=== PATIENT | female | born 1995 | race Caucasian/White ===

== ENCOUNTER 2017-04-13 12:37 | Emergency (ER) | payer OTHER ==
--- NOTE | 2017-04-13 13:24 | XR ---
EXAMINATION TYPE: XR ankle complete RT DATE OF EXAM: 04/13/2017 COMPARISON: NONE HISTORY: Pain TECHNIQUE: Frontal, lateral and oblique images of the right ankle are obtained. COMPARISON: None. FINDINGS: There is no acute fracture/dislocation evident. The joint spaces appear within normal youssef its. The overlying soft tissue appears unremarkable. IMPRESSION: There is no acute fracture or dislocation seen.
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
[2017-04-13 13:54] VITALS: BP 120/67; PULSE 98; RESP 16; TEMP 98.7
== END 2017-04-13 13:50 | disposition home or self-care (01) ==
LOC: EC 12:37
DX: M25.571 Pain in right ankle and joints of right foot (principal); Z91.018 Allergy to other foods; Z91.040 Latex allergy status
CPT/HCPCS: 99283

== ENCOUNTER 2017-04-21 19:17 | Emergency (ER) | payer OTHER ==
[2017-04-21 19:23] VITALS: RESP 18
[2017-04-21] MEDS ORDERED: SODIUM CHLORIDE 0.9% 1,000 ML IV ONE (20:03)
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
[2017-04-21] MEDS ORDERED: DEXTROSE 5%-0.9% NACL 1,000 ML IV SCH (20:15)
[2017-04-21 20:25] LABS: Basophils % (A) 0 %; Eosinophils % (A) 0 %; HCT 39.8 % (34.0-46.0); HGB 12.9 gm/dL (11.4-16.0); Lymphocytes # (A) 0.2 k/uL (1.0-4.8); Lymphocytes % (A) 2 %; MCH 29.7 pg (25.0-35.0); MCHC 32.3 g/dL (31.0-37.0); MCV 91.8 fL (80.0-100.0); Mean Platelet Volume 7.2; Monocytes # (A) 0.2 k/uL (0-1.0); Monocytes % (A) 2 %; Neutrophils # (A) 9.1 k/uL (1.3-7.7); Neutrophils % (A) 96 %; Platelet Count 224 k/uL (150-450); RBC 4.34 m/uL (3.80-5.40); RDW 12.3 % (11.5-15.5); WBC 9.6 k/uL (4.0-11.0)
[2017-04-21 20:32] LABS: Appearance,Urine Clear (Clear); Bacteria,Urine Few /hpf; Bilirubin,Urine Negative (Negative); Blood,Urine Negative (Negative); Color,Urine Yellow; Glucose,Urine (UA) Negative (Negative); Ketones,Urine 3+ (Negative); Leukocyte Esterase,Urine Trace (Negative); Mucus,Urine Few /hpf; Nitrite,Urine Negative (Negative); Protein,Urine 1+ (Negative); RBC,Urine 2 /hpf (0-5); Specific Gravity,Urine 1.024 (1.001-1.035); Squamous Epithelial Cell,Urine 1 /hpf (0-4); Urobilinogen,Urine <2.0 mg/dL (<2.0); WBC,Urine 2 /hpf (0-5)
[2017-04-21 20:44] LABS: ALT 20 U/L (9-52); AST 17 U/L (14-36); Albumin 4.6 g/dL (3.5-5.0); Alkaline Phosphatase 66 U/L (38-126); Anion Gap 14 mmol/L; Blood Urea Nitrogen 14 mg/dL (7-17); Calcium 9.5 mg/dL (8.4-10.2); Carbon Dioxide 23 mmol/L (22-30); Chloride 105 mmol/L (98-107); Glucose 123 mg/dL (74-99); Potassium 3.8 mmol/L (3.5-5.1); Sodium 142 mmol/L (137-145); Total Protein 7.2 g/dL (6.3-8.2)
[2017-04-21 21:00] LABS: HCG,Quantitative Serum 2080.3 mIU/mL
[2017-04-21] MEDS ORDERED: ONDANSETRON 4 MG/2 ML VIAL IVP STA (21:20)
[2017-04-21 21:42] VITALS: BP 105/61; PULSE 90; TEMP 98.3
== END 2017-04-21 21:42 | disposition home or self-care (01) ==
LOC: EC 19:17
DX: O21.0 Mild hyperemesis gravidarum (principal); Z3A.01 Less than 8 weeks gestation of pregnancy; Z87.891 Personal history of nicotine dependence; Z91.018 Allergy to other foods; Z91.040 Latex allergy status
CPT/HCPCS: 36415; 80053; 85025; 81001; 84702; 99283; 96374; 96361; J2405; 87086

== ENCOUNTER 2017-10-16 22:40 | Outpatient (CLI) | payer OTHER ==
[2017-10-16 23:37] VITALS: BP 120/65; PULSE 96; RESP 16; TEMP 98.4
--- NOTE | 2017-11-12 08:22 | P.MSEPDOC ---
Presenting Problems - Arrival Data Date of Arrival on Unit: 10/16/17 Time of Arrival on Unit: 22:40 Mode of Transport: Wheelchair - Complaint OB-Reason for Admission/Chief Complaint: Pain Comment: suprapubic pain and pressure. Medical History - Information : 1 Para: 0 Term: 0 : 0 Abortions: Spontaneous or Elective: 0 Number of Living Children: 0 - Gestational Age Gestational Age by MEEK (wks/days): 31 Weeks and 0 Days Review of Systems - Review of Systems Constitutional: No problems Breast: No problems ENT: No problems Cardiovascular: No problems Respiratory: No problems Gastrointestinal: No problems Genitourinary: No problems Musculoskeletal: No problems Neurological: No problems Skin: No problems Vital Signs - Temperature Temperature: 98.4 F Temperature Source: Oral - Pulse Right Sitting Brachial Pulse Rate: 96 Pulse Assessment Method: Automatic Cuff - Respirations Respiratory Rate: 16 Oxygen Delivery Method: Room Air - Blood Pressure Right Arm Sitting Blood Pressure: 120/65 Blood Pressure Mean: 83 Blood Pressure Source: Automatic Cuff Medical Screen Scoring (Pre) - Cervical Exam Dilation: 0 cm = 0 Membranes: Intact - Uterine Contractions Frequency: N/A Duration: N/A Intensity: N/A - Maternal Vital Signs Maternal Temperature: N/A Maternal Blood Pressure: N/A - Pain Assessment Pain Location and Character: Lower, Abdomen, Pelvic Pain Scale Used: Numeric (1 - 10) Pain Intensity: 8 Pain Management Goal: 3 Pain Description: *Acute, Pressure Pain Radiation Location: n/a Pain Frequency: Frequent Pain Duration: 2 Pain Duration Units: Days Pain Behavior: Crying, Vocalization Pain Aggravating Factors: Bending, Standing, Walking - Maternal Trauma Maternal Trauma: N/A - Assessment Baseline FHR: 135 Heart Rate - NICHD Category: Category I (Normal) = 0 NST: Reactive Position: N/A Station: N/A - Total Score Total Score (Pre): 0 - Level of Risk Level of Risk: Low (0-5) Physician Notification (Pre) - Physician Notified Physician Notified Date: 10/16/17 Physician Notified Time: 23:17 Physician/Practitioner Notifed:: oscar Spoke With: oscar New Order Received: Yes - Notification Comment Comment: d/c home on pelvic rest with orders to f/u with tremp at scheduled appt on 10/27 Disposition - Disposition OB Disposition: Discharge to home Discharge Date: 10/16/17 Discharge Time: 23:30 I agree with the RN Medical Screening Exam: Yes Risk & Benefit of care provided described in d/c instruction: Yes Diagnosis: RELATED CONDITIONS, UNSPECIFIED, THIRD TRIMESTER
== END 2017-10-16 23:30 | disposition home or self-care (01) ==
LOC: FBPOP 22:40
PROVIDERS: ATTEND Obstetrics & Gynecology
DX: O26.93 Pregnancy related conditions, unspecified, third trimester (principal); Z3A.31 31 weeks gestation of pregnancy
CPT/HCPCS: 59025; G0463; 99213

== ENCOUNTER 2017-12-20 11:51 | Outpatient (CLI) | payer OTHER ==
[2017-12-20 13:09] VITALS: BP 129/80; PULSE 120; RESP 16; TEMP 98.2
--- NOTE | 2018-02-01 18:29 | P.MSEPDOC ---
Presenting Problems - Arrival Data Date of Arrival on Unit: 12/20/17 Time of Arrival on Unit: 11:50 Mode of Transport: Ambulatory - Complaint OB-Reason for Admission/Chief Complaint: Decreased Movement, Pain Comment: Pt states decreased movement since this morning and cramping pain , unsure if having contractions, scheduled for IOL tomorrow. Medical History - Information : 1 Para: 0 Term: 0 : 0 Abortions: Spontaneous or Elective: 0 Number of Living Children: 0 - Gestational Age Gestational Age by MEEK (wks/days): 40 Weeks and 2 Days Review of Systems - Review of Systems Constitutional: No problems Breast: No problems ENT: No problems Cardiovascular: No problems Respiratory: No problems Gastrointestinal: No problems Genitourinary: No problems Musculoskeletal: No problems Neurological: No problems Skin: No problems Vital Signs - Temperature Temperature: 98.2 F Temperature Source: Oral - Pulse Right Sitting Brachial Pulse Rate: 120 Pulse Assessment Method: Automatic Cuff - Respirations Respiratory Rate: 16 Oxygen Delivery Method: Room Air - Blood Pressure Right Arm Sitting Blood Pressure: 129/80 Blood Pressure Mean: 96 Blood Pressure Source: Automatic Cuff Medical Screen Scoring (Pre) - Cervical Exam Dilation: 1-3 cm = 1 Membranes: Intact - Uterine Contractions Frequency: > 5 minutes apart = 1 Duration: N/A Intensity: N/A - Maternal Vital Signs Maternal Temperature: N/A Maternal Blood Pressure: N/A Signs of Preeclampsia: N/A Maternal Respirations: N/A - Maternal Trauma Maternal Trauma: N/A - Assessment Baseline FHR: 140 Heart Rate - NICHD Category: Category I (Normal) = 0 NST: Reactive Position: N/A, Non-vertex & not laboring = 3 - Total Score Total Score (Pre): 5 - Level of Risk Level of Risk: Low (0-5) Physician Notification (Pre) - Physician Notified Physician Notified Date: 12/20/17 Physician Notified Time: 12:40 Spoke With: Isra New Order Received: Yes - Notification Comment Comment: Daniel sanchez\Dr. Dhaliwal, advsd , 40 04/14, c/o decreased movement and pain. SVE, reactive NST, scheduled for IOL tomorrow. States to watch total of 2 hrs, if reactive and no change to SVE, may be d/c, to follow up tomorrow for IOL. Medical Screen Scoring (Post) - Cervical Exam Dilation: 1-3 cm = 1 Effacement: More than 50% = 2 - Uterine Contractions Frequency: > 5 minutes apart = 1 Duration: > 40 seconds = 2 - Assessment Heart Rate: 130 Heart Rate - NICHD Category: Category I (Normal) = 0 - Total Score Total Score (Post): 6 - Post Treatment Level of Risk Post Treatment Level of Risk: Medium (6-9) Physician Notification (Post) - Notification Comment Comment: Return in the morning for IOL may come back in the night if pain/ contractions increase Disposition - Disposition OB Disposition: Discharge to home Discharge Date: 12/20/17 Discharge Time: 14:15 I agree with the RN Medical Screening Exam: Yes Risk & Benefit of care provided described in d/c instruction: Yes Diagnosis: FALSE LABOR AT OR AFTER 37 COMPLETED WEEKS OF GESTATION
== END 2017-12-20 14:15 | disposition home or self-care (01) ==
LOC: FBPOP 11:51
PROVIDERS: ATTEND Obstetrics & Gynecology Obstetrics
DX: O47.1 False labor at or after 37 completed weeks of gestation (principal); Z3A.40 40 weeks gestation of pregnancy
CPT/HCPCS: 59025; 84112; G0463; 99213

== ENCOUNTER 2017-12-21 05:50 | Inpatient (IN) | payer OTHER ==
[2017-12-21] MEDS ORDERED: TERBUTALINE 1 MG/ML VIAL SQ PRN (06:04)
[2017-12-21] MEDS ORDERED: LIDOCAINE 0.5% (PF) 5 MG/ML (50 ML SDV) SQ PRN (06:04)
[2017-12-21] MEDS ORDERED: OXYTOCIN 10 UNIT/ML 1 ML VIAL IM PRN (06:04)
[2017-12-21] MEDS ORDERED: METHYLERGONOVINE 0.2 MG/ML 1 ML AMP IM PRN (06:04)
[2017-12-21] MEDS ORDERED: CARBOPROST TROMETHAMINE 250 MCG/ML 1 ML AMP IM PRN (06:04)
[2017-12-21] MEDS: LACTATED RINGERS 1,000 ML IV SCH ×2 (06:08→10:15)
[2017-12-21] MEDS ORDERED: OXYTOCIN 20 UNITS/1000 ML NS 1,000 ML IV SCH ×2 (06:15→12:45)
[2017-12-21 06:18] VITALS: BMI 29.9
[2017-12-21 08:04] LABS: Basophils % (A) 0 %; Eosinophils # (A) 0.2 k/uL (0-0.7); Eosinophils % (A) 2 %; HCT 33.8 % (34.0-46.0); HGB 10.5 gm/dL (11.4-16.0); Hypochromasia Slight; Lymphocytes # (A) 1.9 k/uL (1.0-4.8); Lymphocytes % (A) 18 %; MCH 24.7 pg (25.0-35.0); MCV 79.6 fL (80.0-100.0); Mean Platelet Volume 7.4; Monocytes # (A) 0.6 k/uL (0-1.0); Monocytes % (A) 6 %; Neutrophils # (A) 7.5 k/uL (1.3-7.7); Neutrophils % (A) 72 %; Platelet Count 331 k/uL (150-450); Poikilocytosis Slight; RBC 4.25 m/uL (3.80-5.40); RDW 14.9 % (11.5-15.5); WBC 10.4 k/uL (3.8-10.6)
[2017-12-21] MEDS ORDERED: BUTORPHANOL 1 MG/ML 1 ML VIAL IV PRN (08:12)
[2017-12-21] MEDS ORDERED: ALBUTEROL NEBULIZED 2.5 MG/3 ML INHALATION PRN (08:13)
[2017-12-21] MEDS ORDERED: ROPIVACAINE 100 MG, fentaNYL (PF) 200 MCG in SODIUM CHLORIDE 0.9% 76 ML EPIDURAL ONE (10:15)
[2017-12-21] MEDS ORDERED: HYDROCORTISONE 2.5% RECTAL CREAM 30 GM TUBE RECTAL PRN (12:38)
[2017-12-21] MEDS ORDERED: diphenhydrAMINE 50 MG CAP PO PRN (12:38)
[2017-12-21] MEDS ORDERED: MEASLES-MUMPS-RUBELLA VACC/PF 12,500 UNIT/0.5 ML VIAL SQ ONE (12:38)
[2017-12-21] MEDS ORDERED: diphenhydrAMINE 25 MG CAP PO PRN (12:38)
[2017-12-21] MEDS ORDERED: WITCH HAZEL 1 EACH MED..PAD TOPICAL PRN (12:38)
[2017-12-21] MEDS ORDERED: SIMETHICONE 80 MG CHEWABLE PO PRN (12:38)
[2017-12-21] MEDS ORDERED: BENZOCAINE/MENTHOL SPRAY 1 GM/SPRAY AEROSOL TOPICAL PRN (12:38)
[2017-12-21] MEDS ORDERED: LANOLIN CREAM 5 GM TUBE TOPICAL PRN (12:38)
[2017-12-21] MEDS ORDERED: diphenhydrAMINE 50 MG/ML 1 ML VIAL IVP PRN ×2 (12:38)
[2017-12-21] MEDS ORDERED: ZOLPIDEM 5 MG TAB PO PRN (12:38)
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
--- NOTE | 2017-12-21 12:44 | P.PROBDLV ---
Vaginal Delivery Note - . Vaginal Delivery Note: This is a 22-year-old 1 para 0 at 40-3/7 weeks with an estimated due date of 101 that presents for induction of labor secondary to postdates. Patient was admitted to labor and delivery Pitocin induction was begun and amniotomy was performed couple hours after admission. Clear fluid was obtained. Patient progressed through labor eventually getting an epidural for pain control became complete certified pushing and had a normal spontaneous vaginal delivery of a viable female at 1213 weight of 8 lbs. 8 oz. with Apgars of 9 and 9 at one and 5 minutes respectively. The umbilical cord was then doubly clamped and cut after a 2 minute delay and the was handed off to mom. The placenta was then delivered spontaneously intact with a three- vessel cord being noted. Suction the patient's vaginal vault revealed a left labial laceration was was repaired with 4-0 chromic in the usual fashion in addition a second-degree midline vaginal laceration was noted this was repaired in usual fashion with 3-0 Rapide. Estimated blood loss approximate 400 mL. Uterus noted to be firm and below the umbilicus at this time. Bleeding was minimal. All counts are correct 2 patient and infant tolerated delivery well and are resting comfortably.
[2017-12-21] MEDS: IBUPROFEN 600 MG TAB PO PRN (15:07)
[2017-12-21] MEDS: ACETAMINOPHEN TAB 325 MG TAB PO PRN (20:35)
[2017-12-21] MEDS: SENNOSIDES-DOCUSATE SODIUM 1 EACH TAB PO SCH (20:37)
[2017-12-22] MEDS: IBUPROFEN 600 MG TAB PO PRN ×3 (00:22→15:31)
[2017-12-22] MEDS: ACETAMINOPHEN TAB 325 MG TAB PO PRN ×3 (02:07→20:53)
[2017-12-22 08:05] LABS: Basophils % (A) 0 %; Eosinophils # (A) 0.2 k/uL (0-0.7); Eosinophils % (A) 2 %; Hypochromasia Moderate; Lymphocytes # (A) 1.7 k/uL (1.0-4.8); Lymphocytes % (A) 18 %; MCH 25.8 pg (25.0-35.0); MCHC 31.7 g/dL (31.0-37.0); MCV 81.2 fL (80.0-100.0); Mean Platelet Volume 7.8; Monocytes # (A) 0.6 k/uL (0-1.0); Monocytes % (A) 7 %; Neutrophils # (A) 6.6 k/uL (1.3-7.7); Neutrophils % (A) 71 %; Platelet Count 257 k/uL (150-450); RBC 2.96 m/uL (3.80-5.40); RDW 15.2 % (11.5-15.5); WBC 9.3 k/uL (3.8-10.6)
[2017-12-22 08:08] LABS: HGB 7.6 gm/dL (11.4-16.0)
[2017-12-22] MEDS: SENNOSIDES-DOCUSATE SODIUM 1 EACH TAB PO SCH ×2 (08:09→23:37)
--- NOTE | 2017-12-22 08:28 | P.PNOBGVD ---
Subjective - Subjective Principal diagnosis: day #1, normal spontaneous vaginal delivery Interval history: This is a 22-year-old 1 para 1 that had a normal spontaneous vaginal delivery of a viable female yesterday 1016. Patient did well overnight. She is struggling with breast-feeding as her is tongue tied. She is ambulating and voiding without difficulty. Her pain is controlled with Motrin. Her lochia is moderate. She does wish to stay 1 more day Patient reports: Reports appetite normal, Reports voiding normally, Reports pain well controlled, Reports ambulating normally [place]: doing well Objective - Latest Vital Signs Latest vital signs: Vital Signs Temp Pulse Resp BP Pulse Ox 12/22/17 08:00 98.1 F 106 H 16 138/71 12/22/17 04:15 98.1 F 94 16 110/66 12/22/17 00:05 98.2 F 89 15 112/88 99 12/21/17 20:00 98.0 F 98 16 117/68 12/21/17 16:00 98.7 F 110 H 16 134/83 12/21/17 15:15 109 H 18 130/69 12/21/17 14:45 98.4 F 103 H 16 135/83 12/21/17 14:15 107 H 16 111/60 12/21/17 14:00 98.5 F 102 H 16 106/60 12/21/17 13:45 103 H 16 109/64 12/21/17 13:30 93 18 109/61 12/21/17 13:15 98.5 F 102 H 16 108/70 98 12/21/17 13:00 100 18 111/76 12/21/17 12:45 81 16 105/69 12/21/17 12:30 98.4 F 87 16 119/73 Intake and Output 12/21/17 12/22/17 12/22/17 22:59 06:59 14:59 Intake Total 3360 Output Total 300 Balance 3060 Intake: Intake, IV Titration 3000 Amount Lactated Ringers 1,000 ml 2000 @ 125 mls/hr IV .Q8H NEELIMA Rx#:[id number] Oxytocin 20 Units/1000 ml 1000 Ns 1,000 ml @ Per Protocol IV .Q0M NEELIMA Rx#: [id number] Oral 360 Output: Urine 300 Other: # Voids 1 1 - Exam Extremities: Present: normal Abdomen: Present: soft Uterus: Present: firm - Labs Labs: Abnormal Lab Results - Last 24 Hours (Table) 12/22/17 Range/Units 07:03 RBC 2.96 L (3.80-5.40) m/uL Hgb 7.6 L D (11.4-16.0) gm/dL Hct 24.0 L (34.0-46.0) % Assessment and Plan (1) Term Current Visit: Yes Status: Acute Code(s): Z34.80 - ENCOUNTER FOR SUPRVSN OF NORMAL , UNSP TRIMESTER SNOMED Code(s): 97536422 (2) Status post vaginal delivery Current Visit: Yes Status: Acute Code(s): CKB6353 - SNOMED Code(s): 727983723 Plan: We'll continue routine care and have the vendor management consultant see her today for help with breast-feeding. Anticipate discharge tomorrow 12/23.
[2017-12-22] MEDS ORDERED: FLUTICASONE 50MCG/SPRAY NASAL 16GM EA NOSTRIL PRN (08:47)
[2017-12-22] MEDS: LACTATED RINGERS 1,000 ML IV SCH ×3 (23:38→23:42)
[2017-12-23] MEDS: IBUPROFEN 600 MG TAB PO PRN ×2 (00:35→08:26)
[2017-12-23 01:12] VITALS: PULSE 76
--- NOTE | 2017-12-23 08:08 | P.DS ---
Providers Date of admission: 12/21/17 05:50 Expected date of discharge: 12/23/17 Attending physician: Mariam Dhaliwal Primary care physician: Stated None - Discharge Diagnosis(es) (1) Status post vaginal delivery Current Visit: Yes Status: Acute (2) Term Current Visit: Yes Status: Acute (3) Post-dates Current Visit: Yes Status: Acute Hospital Course: This is a 22-year-old 1 now para 1 woman who was admitted at 40-3/7 weeks gestation for postdates induction of labor. Following admission she underwent a Pitocin induction of labor with artificial rupture of membranes. She received an epidural anesthetic. She went on to have an uncomplicated delivery of a liveborn female weighing 8 lbs. 8 oz. She had a labial laceration. Please see the delivery summary for details. Her course was unremarkable. By day #1 she was ambulating and voiding without difficulty and tolerating a general diet. By post 100 a #2 she continued to do well she was complaining of some on back and perineal soreness that was managed with ice and ibuprofen. Her lochia was decreasing. On her vital signs were stable. She was therefore discharged home with routine instructions for care and follow-up. Procedures: Normal spontaneous vaginal delivery Patient Condition at Discharge: Good Plan - Discharge Summary New Discharge Prescriptions: No Action Albuterol Inhaler [Ventolin Hfa Inhaler] 2 puff PO DAILY PRN PRN Reason: Shortness Of Breath Discharge Medication List Albuterol Inhaler [Ventolin Hfa Inhaler] 2 puff PO DAILY PRN 10/16/17 [History] Follow up Appointment(s)/Referral(s): Mariam Dhaliwal DO [Doctor of Osteopathic Medicine] - 4 Weeks Activity/Diet/Wound Care/Special Instructions: Follow-up in the office in 6 weeks . Call with any concerning signs or symptoms including heavy vaginal bleeding, severe abdominal pain, fever greater than 101, swelling or redness of the lower extremities, foul vaginal discharge, or signs of depression. Nothing in the vagina for 6 weeks after delivery, specifically no intercourse. Discharge Disposition: HOME SELF-CARE
[2017-12-23] MEDS: SENNOSIDES-DOCUSATE SODIUM 1 EACH TAB PO SCH (08:14)
[2017-12-23 09:12] VITALS: BP 138/74; RESP 20; TEMP 97.4
[2017-12-23] MEDS: ACETAMINOPHEN TAB 325 MG TAB PO PRN (11:55)
[2017-12-23] MEDS ORDERED: INFLUENZA VACCINE (6 MOS+) 60 MCG/0.5 ML SYRINGE IM ONE (12:02)
--- NOTE | 2017-12-23 15:13 | US ---
EXAMINATION TYPE: US venous doppler duplex LE RT DATE OF EXAM: 12/23/2017 2:57 PM COMPARISON: NONE CLINICAL HISTORY: 22-year-old female rule out DVT. Vaginal delivery 2 days ago. Right leg edema SIDE PERFORMED: right TECHNIQUE: The lower extremity deep venous system is examined utilizing real time linear array sonog aren with graded compression, doppler sonography and color-flow sonography. FINDINGS: VESSELS IMAGED: External Iliac Vein (EIV) Common Femoral Vein Deep Femoral Vein Greater Saphenous Vein * Femoral Vein Popliteal Vein Small Saphenous Vein * Proximal Calf Veins (* superficial vessels) Right Leg: No evidence of DVT as visualized IMPRESSION: No evidence for DVT within the right lower extremity imaged from the groin to the upper calf.
== END 2017-12-23 15:30 | disposition home or self-care (01) | DRG 807 ==
LOC: 4FBP 05:50
PROVIDERS: ADMIT Obstetrics & Gynecology Obstetrics; ATTEND Obstetrics & Gynecology Obstetrics
PROC: 10E0XZZ Delivery of Products of Conception, External Approach (ICD-10-PCS; principal; 2017-12-21)
PROC: 0KQM0ZZ Repair Perineum Muscle, Open Approach (ICD-10-PCS; 2017-12-21)
PROC: 3E033VJ Introduction of Other Hormone into Peripheral Vein, Percutaneous Approach (ICD-10-PCS; 2017-12-21)
PROC: 10907ZC Drainage of Amniotic Fluid, Therapeutic from Products of Conception, Via Natural or Artificial Opening (ICD-10-PCS; 2017-12-21)
PROC: 00HU33Z Insertion of Infusion Device into Spinal Canal, Percutaneous Approach (ICD-10-PCS; 2017-12-21)
PROC: 3E0R3BZ Introduction of Anesthetic Agent into Spinal Canal, Percutaneous Approach (ICD-10-PCS; 2017-12-21)
PROC: 0HQ9XZZ Repair Perineum Skin, External Approach (ICD-10-PCS; 2017-12-21)
DX: O48.0 Post-term pregnancy (principal); Z37.0 Single live birth; O70.0 First degree perineal laceration during delivery; O70.1 Second degree perineal laceration during delivery; J45.909 Unspecified asthma, uncomplicated; O99.52 Diseases of the respiratory system complicating childbirth; K21.9 Gastro-esophageal reflux disease without esophagitis; O99.62 Diseases of the digestive system complicating childbirth; Z3A.40 40 weeks gestation of pregnancy; Z79.899 Other long term (current) drug therapy; Z91.040 Latex allergy status; Z91.018 Allergy to other foods; Z82.49 Family history of ischemic heart disease and other diseases of the circulatory system; Z83.3 Family history of diabetes mellitus
CPT/HCPCS: 85025; 86850; 86900; 86901; 90686; 90707

== ENCOUNTER → 2019-09-11 | Outpatient (CLI) | payer OTHER ==
--- NOTE | 2019-09-12 08:50 | US ---
EXAMINATION TYPE: Transabdominal DATE OF EXAM: 09/11/2019 3:59 PM COMPARISON: NONE CLINICAL HISTORY: Z36 Confirm dates. EXAM PERFORMED: Transabdominal (TA) EXAM MEASUREMENTS: GESTATIONAL AGE / DATING Physician Established: Not yet established Dates by LMP: (10 weeks/3 days) EDC: 04/05/2020 Dates by First Scan: No previous this is first scan Dates by Current Scan for: (10 weeks/3 days) EDC: 04/05/2020 MATERNAL ANATOMY Uterus: 12.1 x9.6 x 6.3cm ; retroverted Right Ovary: 3.0 x 2.6 x 1.6cm Left Ovary: 3.7 x 2.0 x 1.5cm Post CDS / Adnexa: wnl Presence of free fluid: no Presence of corpus luteal cyst: in left ovary = 1.6 x 1.4 x 1.3cm Presence of subchorionic bleed: no GESTATION / SURVEY CRL: 3.6cm (10 weeks/3 days) Yolk Sac (normal less than 6mm): not seen Heart Rate: 171 bpm Rhythm: Normal IUP: Single, live IUP Date of LMP: 06/30/2019 Beta HcG (if available): NA Single, live IUP,10 weeks/3 days, EDC: 04/05/2020; [id number]. IMPRESSION: 1. Single intrauterine gestation estimated at 10 weeks 3 days gestation based on the crown-rump lengt h. Cardiac activity measures 171 bpm.
== END | disposition home or self-care (01) ==
LOC: RADUSWWP 15:34
PROVIDERS: ATTEND Obstetrics & Gynecology
DX: Z36.9 Encounter for antenatal screening, unspecified (principal); Z3A.10 10 weeks gestation of pregnancy
CPT/HCPCS: 76801

== ENCOUNTER → 2019-09-20 | Outpatient (CLI) | payer OTHER ==
[2019-09-20 14:34] LABS: Basophils % (A) 0 %; Eosinophils # (A) 0.2 k/uL (0-0.7); Eosinophils % (A) 2 %; HCT 37.3 % (34.0-46.0); HGB 12.4 gm/dL (11.4-16.0); Lymphocytes # (A) 2.2 k/uL (1.0-4.8); Lymphocytes % (A) 24 %; MCH 29.2 pg (25.0-35.0); MCHC 33.3 g/dL (31.0-37.0); MCV 87.8 fL (80.0-100.0); Mean Platelet Volume 7.2; Monocytes # (A) 0.4 k/uL (0-1.0); Monocytes % (A) 5 %; Neutrophils # (A) 6.2 k/uL (1.3-7.7); Neutrophils % (A) 67 %; Platelet Count 276 k/uL (150-450); RBC 4.25 m/uL (3.80-5.40); WBC 9.2 k/uL (3.8-10.6)
[2019-09-21 00:49] LABS: Albumin 4.4 g/dL (3.80-4.90); Calcium 9.7 mg/dL (8.7-10.3); Globulin 2.2 g/dL (1.6-3.3); Non-African American GFR(CKD) 129.4 (60.0-200.0); Potassium 4.3 mmol/L (3.5-5.5); Total Bilirubin 0.3 mg/dL (0.3-1.2); Total Protein 6.6 g/dL (6.2-8.2)
[2019-09-21 03:43] LABS: Hepatitis B Surface Antigen Non-Reactive (Non-Reactive)
[2019-09-21 07:43] LABS: HIV 2 AB Non-Reactive (Non-Reactive); HIV AB P24 Non-Reactive (Non-Reactive); HIV P24 AG Non-Reactive (Non-Reactive)
[2019-09-21 12:02] LABS: C. trachomatis,PCR Negative (Neg,Equiv); Chlamydia trachomatis Source Urine; N. gonorrhoeae,PCR Negative (Neg,Equiv); Neisseria Source Urine
== END | disposition home or self-care (01) ==
LOC: LABWHC1 13:45
PROVIDERS: ATTEND Obstetrics & Gynecology
DX: Z34.81 Encounter for supervision of other normal pregnancy, first trimester (principal)
CPT/HCPCS: 36415; 80053; 85025; 86762; 86780; 86850; 86900; 86901; 87340; 87390; 87491; 87591

== ENCOUNTER 2019-12-28 17:05 | Outpatient (CLI) | payer OTHER ==
[2019-12-28 17:53] LABS: Appearance,Urine Clear (Clear); Bacteria,Urine Rare /hpf; Bilirubin,Urine Negative (Negative); Blood,Urine Negative (Negative); Color,Urine Colorless; Glucose,Urine (UA) Negative (Negative); Ketones,Urine Negative (Negative); Leukocyte Esterase,Urine Small (Negative); Mucus,Urine Rare /hpf; Nitrite,Urine Negative (Negative); PH, Urine 7.5 (5.0-8.0); Protein,Urine Negative (Negative); RBC,Urine 1 /hpf (0-5); Specific Gravity,Urine 1.005 (1.001-1.035); Squamous Epithelial Cell,Urine 6 /hpf (0-4); Urobilinogen,Urine <2.0 mg/dL (<2.0); WBC,Urine 8 /hpf (0-5)
[2019-12-28 18:35] VITALS: BP 114/61; PULSE 106; RESP 16; TEMP 98.4
--- NOTE | 2020-01-02 13:07 | P.MSEPDOC ---
Presenting Problems - Arrival Data Date of Arrival on Unit: 12/28/19 Time of Arrival on Unit: 17:05 Mode of Transport: Ambulatory - Complaint OB-Reason for Admission/Chief Complaint: Pain Comment: pelvic and left sided pain Medical History - Information : 2 Para: 1 Term: 1 : 0 Abortions: Spontaneous or Elective: 0 Number of Living Children: 1 - Gestational Age Gestational Age by MEEK (wks/days): 25 Weeks and 6 Days Review of Systems - Review of Systems Constitutional: No problems Breast: No problems ENT: No problems Cardiovascular: No problems Respiratory: No problems Gastrointestinal: No problems Genitourinary: Urgency Musculoskeletal: No problems Neurological: No problems Skin: No problems Vital Signs - Temperature Temperature: 98.4 F Temperature Source: Temporal Artery Scan - Pulse Right Brachial Pulse Rate: 106 Pulse Assessment Method: Automatic Cuff - Respirations Respiratory Rate: 16 Oxygen Delivery Method: Room Air O2 Sat by Pulse Oximetry: 98 - Blood Pressure Right Arm Blood Pressure: 114/61 Blood Pressure Mean: 78 Blood Pressure Source: Automatic Cuff Medical Screen Scoring (Pre) - Cervical Exam Dilation: Exam Deferred Effacement: Exam Deferred Membranes: Intact - Uterine Contractions Frequency: N/A Duration: N/A Intensity: N/A - Maternal Vital Signs Maternal Temperature: N/A Maternal Blood Pressure: N/A Signs of Preeclampsia: N/A Maternal Respirations: N/A - Maternal Trauma Maternal Trauma: N/A - Assessment - Baby A Baseline FHR: 130 Heart Rate - NICHD Category: Category I (Normal) = 0 Position: N/A Station: N/A - Total Score - Baby A Total Score - Baby A: 0 - Total Score - Baby B Total Score - Baby B: 0 - Total Score - Baby C Total Score - Baby C: 0 - Level of Risk - Baby A Level of Risk - Baby A: Low (0-5) - Level of Risk - Baby B Level of Risk - Baby B: Low (0-5) - Level of Risk - Baby C Level of Risk - Baby C: Low (0-5) Physician Notification (Pre) - Physician Notified Physician Notified Date: 12/28/19 Physician Notified Time: 18:18 New Order Received: Yes (d/c with instruction) Disposition - Disposition OB Disposition: Triage, Discharge to home, Written follow up instructions reviewed Discharge Date: 12/28/19 Discharge Time: 18:23 I agree with the RN Medical Screening Exam: Yes Risk & Benefit of care provided described in d/c instruction: Yes Diagnosis: LOW BACK PAIN
== END 2019-12-28 18:23 | disposition home or self-care (01) ==
LOC: FBPOP 17:05
PROVIDERS: ATTEND Obstetrics & Gynecology
DX: O99.891 Other specified diseases and conditions complicating pregnancy (principal); M54.5 Low back pain; Z3A.25 25 weeks gestation of pregnancy
CPT/HCPCS: 81001; G0463; 99213

== ENCOUNTER 2020-01-11 15:15 | Outpatient (CLI) | payer OTHER ==
[2020-01-11 16:52] VITALS: BP 96/53; PULSE 107; RESP 16; TEMP 97.1
--- NOTE | 2020-01-22 19:05 | P.MSEPDOC ---
Presenting Problems - Arrival Data Date of Arrival on Unit: 01/11/20 Time of Arrival on Unit: 15:20 Mode of Transport: Ambulatory - Complaint OB-Reason for Admission/Chief Complaint: Decreased Movement Medical History - Information : 2 Para: 1 Term: 1 : 0 Abortions: Spontaneous or Elective: 0 Number of Living Children: 1 - Gestational Age Gestational Age by MEEK (wks/days): 27 Weeks and 6 Days Review of Systems - Review of Systems Constitutional: No problems Breast: No problems ENT: No problems Cardiovascular: No problems Respiratory: No problems Gastrointestinal: No problems Genitourinary: No problems Musculoskeletal: No problems Neurological: No problems Skin: No problems Vital Signs - Temperature Temperature: 97.1 F Temperature Source: Temporal Artery Scan - Pulse Pulse Oximetery Pulse Rate: 107 Pulse Assessment Method: Pulse Oximetry - Respirations Respiratory Rate: 16 O2 Sat by Pulse Oximetry: 96 - Blood Pressure Right Arm Sitting Blood Pressure: 96/53 Blood Pressure Mean: 67 Blood Pressure Source: Automatic Cuff Medical Screen Scoring (Pre) - Cervical Exam Dilation: Exam Deferred Effacement: Exam Deferred Membranes: Intact - Uterine Contractions Frequency: N/A Duration: N/A Intensity: N/A - Maternal Vital Signs Maternal Temperature: N/A Maternal Blood Pressure: N/A Signs of Preeclampsia: N/A Maternal Respirations: N/A - Assessment - Baby A Baseline FHR: 140 Heart Rate - NICHD Category: Category I (Normal) = 0 NST: Reactive Position: N/A Station: N/A - Total Score - Baby A Total Score - Baby A: 0 - Total Score - Baby B Total Score - Baby B: 0 - Total Score - Baby C Total Score - Baby C: 0 - Level of Risk - Baby A Level of Risk - Baby A: Low (0-5) - Level of Risk - Baby B Level of Risk - Baby B: Low (0-5) - Level of Risk - Baby C Level of Risk - Baby C: Low (0-5) Physician Notification (Pre) - Physician Notified Physician Notified Date: 01/11/20 Physician Notified Time: 16:00 New Order Received: Yes Disposition - Disposition OB Disposition: Discharge to home, Written follow up instructions reviewed Discharge Date: 01/11/20 Discharge Time: 16:08 I agree with the RN Medical Screening Exam: Yes Risk & Benefit of care provided described in d/c instruction: Yes Diagnosis: DECREASED MOVEMENTS, SECOND TRIMESTER, UNSP
== END 2020-01-11 16:00 | disposition home or self-care (01) ==
LOC: FBPOP 15:15
PROVIDERS: ATTEND Obstetrics & Gynecology
DX: O36.8120 Decreased fetal movements, second trimester, not applicable or unspecified (principal); Z3A.27 27 weeks gestation of pregnancy
CPT/HCPCS: 99213

== ENCOUNTER 2020-03-22 10:36 | Outpatient (CLI) | payer OTHER ==
[2020-03-22 12:20] VITALS: BP 113/66; PULSE 113; RESP 16; TEMP 97.9
--- NOTE | 2020-03-26 08:18 | P.MSEPDOC ---
Presenting Problems - Arrival Data Date of Arrival on Unit: 03/22/20 Time of Arrival on Unit: 10:36 Mode of Transport: Ambulatory - Complaint OB-Reason for Admission/Chief Complaint: Possible Onset of Labor Medical History - Information : 2 Para: 1 Term: 1 : 0 Abortions: Spontaneous or Elective: 0 Number of Living Children: 1 - Gestational Age Gestational Age by MEEK (wks/days): 38 Weeks and 0 Days Review of Systems - Review of Systems Constitutional: No problems Breast: No problems ENT: No problems Cardiovascular: No problems Respiratory: No problems Gastrointestinal: No problems Genitourinary: No problems Musculoskeletal: No problems Neurological: No problems Skin: No problems Vital Signs - Temperature Temperature: 97.9 F Temperature Source: Temporal Artery Scan - Pulse Right Pulse Rate: 113 Pulse Assessment Method: Automatic Cuff - Respirations Respiratory Rate: 16 Oxygen Delivery Method: Room Air O2 Sat by Pulse Oximetry: 98 - Blood Pressure Right Arm Blood Pressure: 113/66 Blood Pressure Mean: 81 Blood Pressure Source: Automatic Cuff Medical Screen Scoring (Pre) - Cervical Exam Dilation: 1-3 cm = 1 Effacement: More than 50% = 2 Membranes: Intact - Uterine Contractions Frequency: N/A Duration: N/A Intensity: N/A - Maternal Vital Signs Maternal Temperature: N/A Signs of Preeclampsia: N/A Maternal Respirations: N/A - Maternal Trauma Maternal Trauma: N/A - Assessment - Baby A Baseline FHR: 145 Heart Rate - NICHD Category: Category I (Normal) = 0 NST: Reactive Position: N/A Station: N/A - Total Score - Baby A Total Score - Baby A: 3 - Total Score - Baby B Total Score - Baby B: 3 - Total Score - Baby C Total Score - Baby C: 3 - Level of Risk - Baby A Level of Risk - Baby A: Low (0-5) - Level of Risk - Baby B Level of Risk - Baby B: Low (0-5) - Level of Risk - Baby C Level of Risk - Baby C: Low (0-5) Physician Notification (Pre) - Physician Notified Physician Notified Date: 03/22/20 Physician Notified Time: 11:55 New Order Received: Yes Disposition - Disposition OB Disposition: Discharge to home Discharge Date: 03/22/20 Discharge Time: 12:01 I agree with the RN Medical Screening Exam: Yes Risk & Benefit of care provided described in d/c instruction: Yes Diagnosis: FALSE LABOR AT OR AFTER 37 COMPLETED WEEKS OF GESTATION
== END 2020-03-22 12:00 | disposition home or self-care (01) ==
LOC: FBPOP 10:36
PROVIDERS: ATTEND Obstetrics & Gynecology
DX: O47.1 False labor at or after 37 completed weeks of gestation (principal); Z3A.38 38 weeks gestation of pregnancy
CPT/HCPCS: 59025; G0463; 99213

== ENCOUNTER 2020-03-23 01:05 | Outpatient (CLI) | payer OTHER ==
[2020-03-23 02:47] VITALS: BP 120/74; PULSE 107; RESP 16; TEMP 97.1
--- NOTE | 2020-03-23 12:09 | P.MSEPDOC ---
Presenting Problems - Arrival Data Date of Arrival on Unit: 03/23/20 Time of Arrival on Unit: 01:05 Mode of Transport: Ambulatory - Complaint OB-Reason for Admission/Chief Complaint: Possible Onset of Labor, Scheduled C- Section Comment: Patient reports to triage with contractions that are approximately 10 minutes. apart. Patient denies bleeding, states she is unsure if her water is broken, states she. feels "wet down there" Patient was seen in the office and in triage today was 2cm/70%. dilated earlier yesterday. Medical History - Information : 2 Para: 1 Term: 1 : 0 Abortions: Spontaneous or Elective: 0 Number of Living Children: 1 - Gestational Age Gestational Age by MEEK (wks/days): 38 Weeks and 1 Days Review of Systems - Review of Systems Constitutional: No problems Breast: No problems ENT: No problems Cardiovascular: No problems Respiratory: No problems Gastrointestinal: No problems Genitourinary: No problems Musculoskeletal: No problems Neurological: No problems Skin: No problems Vital Signs - Temperature Temperature: 97.1 F Temperature Source: Temporal Artery Scan - Pulse Right Brachial Pulse Rate: 107 Pulse Assessment Method: Automatic Cuff - Respirations Respiratory Rate: 16 Oxygen Delivery Method: Room Air O2 Sat by Pulse Oximetry: 98 - Blood Pressure Right Arm Blood Pressure: 120/74 Blood Pressure Mean: 89 Blood Pressure Source: Automatic Cuff Medical Screen Scoring (Pre) - Cervical Exam Dilation: 1-3 cm = 1 Effacement: More than 50% = 2 Membranes: Intact - Uterine Contractions Frequency: > 5 minutes apart = 1 Duration: > 40 seconds = 2 Intensity: N/A - Maternal Vital Signs Maternal Temperature: N/A Maternal Blood Pressure: N/A Signs of Preeclampsia: N/A - Maternal Trauma Maternal Trauma: N/A - Assessment - Baby A Baseline FHR: 145 Heart Rate - NICHD Category: Category I (Normal) = 0 NST: Reactive Position: N/A Station: N/A - Total Score - Baby A Total Score - Baby A: 6 - Total Score - Baby B Total Score - Baby B: 6 - Total Score - Baby C Total Score - Baby C: 6 - Level of Risk - Baby A Level of Risk - Baby A: Medium (6-9) - Level of Risk - Baby B Level of Risk - Baby B: Medium (6-9) - Level of Risk - Baby C Level of Risk - Baby C: Medium (6-9) Physician Notification (Pre) - Physician Notified Physician Notified Date: 03/23/20 Physician Notified Time: 02:14 New Order Received: Yes - Notification Comment Comment: RN spoke with Dr. Ayon. RN reported that patient returned to triage with. complaints of stronger contractions, ten minutes apart. Patients cervical exam remained. 2/80/-2 and amnisure was negative. Patient was having irregular contractions and rating. the pain as 6/10. NST was reactive. Dr. Ayon states patient can either be discharged. home or she can wait another hour for a repeat cervical exam. Patient would like to be. discharged Disposition - Disposition OB Disposition: Discharge to home Discharge Date: 03/23/20 Discharge Time: 02:40 I agree with the RN Medical Screening Exam: Yes Risk & Benefit of care provided described in d/c instruction: Yes Diagnosis: FALSE LABOR AT OR AFTER 37 COMPLETED WEEKS OF GESTATION
== END 2020-03-23 02:40 | disposition home or self-care (01) ==
LOC: FBPOP 01:05
PROVIDERS: ATTEND Obstetrics & Gynecology
DX: O47.1 False labor at or after 37 completed weeks of gestation (principal); Z3A.38 38 weeks gestation of pregnancy
CPT/HCPCS: 59025; 84112; G0463; 99213

== ENCOUNTER 2020-03-29 06:15 | Inpatient (IN) | payer OTHER ==
[2020-03-29] MEDS ORDERED: LIDOCAINE 0.5% (PF) 5 MG/ML (50 ML SDV) SQ PRN (06:58)
[2020-03-29] MEDS ORDERED: METHYLERGONOVINE 0.2 MG/ML 1 ML AMP IM PRN (06:58)
[2020-03-29] MEDS ORDERED: TERBUTALINE 1 MG/ML VIAL SQ PRN (06:58)
[2020-03-29] MEDS ORDERED: CARBOPROST TROMETHAMINE 250 MCG/ML 1 ML AMP IM PRN (06:58)
[2020-03-29] MEDS ORDERED: OXYTOCIN 10 UNIT/ML 1 ML VIAL IM PRN (06:58)
[2020-03-29] MEDS ORDERED: OXYTOCIN 30 UNITS/500 ML NS 30 UNIT in SALINE 1 500ML.BAG IV SCH ×2 (07:00→14:45)
[2020-03-29] MEDS: LACTATED RINGERS 1,000 ML IV SCH ×2 (07:37→09:51)
[2020-03-29] MEDS ORDERED: BUTORPHANOL 1 MG/ML 1 ML VIAL IV PRN (08:18)
[2020-03-29] MEDS ORDERED: AMPICILLIN 2,000 MG in SODIUM CHLORIDE 0.9% 100 ML IVPB STA (08:18)
[2020-03-29 08:20] LABS: Basophils % (A) 0 %; Eosinophils # (A) 0.1 k/uL (0-0.7); Eosinophils % (A) 1 %; HCT 33.9 % (34.0-46.0); HGB 11.1 gm/dL (11.4-16.0); Hypochromasia Slight; Lymphocytes # (A) 1.7 k/uL (1.0-4.8); Lymphocytes % (A) 19 %; MCH 26.7 pg (25.0-35.0); MCHC 32.7 g/dL (31.0-37.0); MCV 81.6 fL (80.0-100.0); Mean Platelet Volume 7.9; Monocytes # (A) 0.6 k/uL (0-1.0); Monocytes % (A) 7 %; Neutrophils # (A) 6.6 k/uL (1.3-7.7); Neutrophils % (A) 72 %; Platelet Count 324 k/uL (150-450); RBC 4.15 m/uL (3.80-5.40); RDW 15.5 % (11.5-15.5); WBC 9.1 k/uL (3.8-10.6)
[2020-03-29] MEDS ORDERED: SODIUM CHLORIDE 0.9% 100 ML BAG ONE (09:54)
[2020-03-29] MEDS ORDERED: fentaNYL (PF) 50 MCG/ML 5 ML AMP ONE (09:54)
[2020-03-29] MEDS ORDERED: ROPIVACAINE 5MG/ML 20ML VIAL ONE (09:54)
[2020-03-29] MEDS ORDERED: AMPICILLIN 1,000 MG in SODIUM CHLORIDE 0.9% 50 ML IVPB SCH (12:30)
[2020-03-29] MEDS ORDERED: LANOLIN CREAM 5 GM TUBE TOPICAL PRN (14:28)
[2020-03-29] MEDS ORDERED: HYDROCORTISONE 2.5% RECTAL CREAM 30 GM TUBE RECTAL PRN (14:28)
[2020-03-29] MEDS ORDERED: ZOLPIDEM 5 MG TAB PO PRN (14:28)
[2020-03-29] MEDS ORDERED: SIMETHICONE 80 MG CHEWABLE PO PRN (14:28)
[2020-03-29] MEDS ORDERED: diphenhydrAMINE 50 MG/ML 1 ML VIAL IVP PRN ×2 (14:28)
[2020-03-29] MEDS ORDERED: BENZOCAINE/MENTHOL SPRAY 1 GM/SPRAY AEROSOL TOPICAL PRN (14:28)
[2020-03-29] MEDS ORDERED: diphenhydrAMINE 50 MG CAP PO PRN (14:28)
[2020-03-29] MEDS ORDERED: diphenhydrAMINE 25 MG CAP PO PRN (14:28)
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
--- NOTE | 2020-03-29 16:42 | P.PROBDLV ---
Vaginal Delivery Note - . Vaginal Delivery Note: Patient progressed to complete and pushing with spontaneous vaginal delivery of a viable male over an intact perineum. Following delivery of the head anterior posterior shoulders were delivered with gentle downward upper traction followed by the remainder the baby from left occiput anterior position. Mouth nares were then bulb suctioned and baby was placed mother's abdomen where the umbilical cord was allowed to pulsate for 20 seconds prior to clamping and cutting. Once this was completed nursery personnel was present and assumed care. Placenta was then delivered intact Pitocin was added to the IV. scores of 9 and 9 at one and 5 minutes speculum and the weight was 8 lbs. 10 oz. Both mother and baby are stable following delivery.
[2020-03-29] MEDS: ACETAMINOPHEN TAB 325 MG TAB PO PRN (20:06)
[2020-03-29] MEDS: SENNOSIDES-DOCUSATE SODIUM 1 EACH TAB PO SCH (20:30)
[2020-03-29] MEDS: IBUPROFEN 600 MG TAB PO PRN (23:33)
[2020-03-30] MEDS: SENNOSIDES-DOCUSATE SODIUM 1 EACH TAB PO SCH (07:26)
[2020-03-30] MEDS: IBUPROFEN 600 MG TAB PO PRN ×2 (07:27→17:23)
[2020-03-30 08:55] VITALS: RESP 18
--- NOTE | 2020-03-30 09:36 | P.DS ---
Providers Date of admission: 03/29/20 06:40 Expected date of discharge: 03/30/20 Attending physician: Go Ayon Primary care physician: Stated None - Discharge Diagnosis(es) (1) Status post vaginal delivery Current Visit: No Status: Acute Hospital Course: Seen and examined. Presented for induction of labor and underwent a normal vaginal delivery. Denies nausea, vomiting, chest pain, shortness of breath or calf pain. She'll be discharged home day #1 in stable condition to follow-up with Dr. Forte in 6 week. Plan - Discharge Summary New Discharge Prescriptions: New Ibuprofen [Motrin] 600 mg PO Q6HR PRN #30 tab PRN Reason: Mild Pain Or Fever >= 100.5 No Action Albuterol Inhaler (Mhu) [Ventolin Hfa Inhaler (Mhu)] 2 puff PO DAILY PRN PRN Reason: Shortness Of Breath Pnv No.95/Ferrous Fum/Folic AC [ Multivitamin Tablet] 1 each PO DAILY Famotidine [Pepcid] 10 mg PO DAILY Discharge Medication List Albuterol Inhaler (Mhu) [Ventolin Hfa Inhaler (Mhu)] 2 puff PO DAILY PRN 10/16/17 [History] Pnv No.95/Ferrous Fum/Folic AC [ Multivitamin Tablet] 1 each PO DAILY 01/11/20 [History] Famotidine [Pepcid] 10 mg PO DAILY 03/22/20 [History] Ibuprofen [Motrin] 600 mg PO Q6HR PRN #30 tab 03/30/20 [Rx] Follow up Appointment(s)/Referral(s): Go Ayon DO [Doctor of Osteopathic Medicine] - 6 Weeks Discharge Disposition: HOME SELF-CARE
[2020-03-30] MEDS: ACETAMINOPHEN TAB 325 MG TAB PO PRN (11:45)
[2020-03-30 12:09] VITALS: TEMP 98.5
[2020-03-30 18:02] VITALS: BP 119/79; PULSE 90
== END 2020-03-30 18:16 | disposition home or self-care (01) | DRG 807 ==
LOC: 4FBP 06:40
PROVIDERS: ADMIT Obstetrics & Gynecology; ATTEND Obstetrics & Gynecology
PROC: 10907ZC Drainage of Amniotic Fluid, Therapeutic from Products of Conception, Via Natural or Artificial Opening (ICD-10-PCS; principal; 2020-03-29)
PROC: 10E0XZZ Delivery of Products of Conception, External Approach (ICD-10-PCS; 2020-03-29)
DX: O99.52 Diseases of the respiratory system complicating childbirth (principal); Z37.0 Single live birth; J45.909 Unspecified asthma, uncomplicated; Z3A.39 39 weeks gestation of pregnancy; Z82.49 Family history of ischemic heart disease and other diseases of the circulatory system; Z83.3 Family history of diabetes mellitus; Z87.891 Personal history of nicotine dependence
CPT/HCPCS: 85025; 86850; 86900; 86901

== ENCOUNTER → 2020-04-05 | Outpatient (CLI) | payer OTHER ==
--- NOTE | 2020-04-05 14:15 | US ---
EXAMINATION TYPE: US pelvic complete DATE OF EXAM: 04/05/2020 COMPARISON: NONE CLINICAL HISTORY: O90.89 post pain. Pelvic pain and light spotting 1 week post that pat ient states get worse when holding baby. TECHNIQUE: . Transabdominal sonographic images of the pelvis were acquired. Date of LMP: Unknown EXAM MEASUREMENTS: Uterus: 16.3 x 7.3 x 11.5 cm Endometrial Stripe: 1.7 cm Right Ovary: 2.8 x 1.2 x 2.1 cm Left Ovary: 3.7 x 2.4 x 1.8 cm 1. Uterus: anteverted, mildly heterogeneous 2. Endometrium: complex fluid within endo 3. Right Ovary: wnl 4. Left Ovary: wnl 5. Bilateral Adnexa: wnl 6. Posterior cul-de-sac: wnl IMPRESSION: 1. Uterus is enlarged compatible with patient's post state. There is fluid within the endometr ium which appears to be somewhat complex. Findings may simply reflect post changes. Endometrit is is not excluded.
== END | disposition home or self-care (01) ==
LOC: RADUSWWP 13:11
PROVIDERS: ATTEND Obstetrics & Gynecology
DX: N85.2 Hypertrophy of uterus (principal)
CPT/HCPCS: 76856

== ENCOUNTER 2020-04-11 08:03 | Day surgery (SDC) | payer OTHER ==
[2020-04-10 11:09] VITALS: BMI 27.4
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
[~2020-04-11 08:03] MED LIST: DEXAMETHASONE SOD PHOSPHATE 4 MG/ML 1 ML VIAL IV ONE; HYDROmorphone 0.5 MG/0.5 ML SYRINGE IVP PRN; LACTATED RINGERS 1,000 ML IV SCH; LIDOCAINE 1% (10MG/ML) FOR IV START INTRADERMA PRN; MIDAZOLAM 2 MG/2 ML VIAL IV PRN; ONDANSETRON 4 MG/2 ML VIAL IVP ONE; Pre Op ABX Message 1 EACH MISC MISCELLANE ONE
[2020-04-11 08:22] VITALS: RESP 16
[2020-04-11] MEDS ORDERED: MIDAZOLAM 2 MG/2 ML VIAL ONE (09:32)
[2020-04-11] MEDS ORDERED: KETOROLAC 15 MG/ML 1 ML VIAL ONE (09:32)
[2020-04-11] MEDS ORDERED: fentaNYL (PF) 50 MCG/ML 2 ML AMP ONE (09:32)
[2020-04-11] MEDS ORDERED: PROPOFOL 10 MG/ML 20 ML VIAL IV ONE (09:32)
--- NOTE | 2020-04-11 10:02 | P.OP ---
Date of Procedure: 04/11/20 Preoperative Diagnosis: Retained products and pelvic pain Postoperative Diagnosis: Same Procedure(s) Performed: D&C Anesthesia: DENNY Surgeon: Go Ayon Estimated Blood Loss (ml): 70 Pathology: other (Uterine curettings) Condition: stable Disposition: same day Operative Findings: Approximately 70 mL of clot and some blood is collected with possible decidua and potentially some membranes Description of Procedure: Patient was taken to the operating suite where a general anesthetic was found be adequate. She was prepped and draped in normal sterile fashion and placed in the dorsal lithotomy position. Initially a weighted speculum was inserted in the vagina and the anterior lip of the cervix was identified and grasped with a now's clamp. Uterus was then sounded to 12 cm and cervix was dilated. Gentle sharp curettings of the endometrium were obtained. Significant quantity of blood, clot and some decidual with likely some fragments of membrane were removed during this process. Once I can no longer feel any further products clot or areas of concern within the endometrium the procedure was terminated. All products were sent to the pathologist. Incidents were then removed. Sponge, lap, needle counts were all correct 2. Patient was then taken to the recovery room in stable and satisfactory condition. Plan - Discharge Summary Discharge Rx Participant: No New Discharge Prescriptions: New Ibuprofen [Motrin] 600 mg PO Q6HR PRN #30 tab PRN Reason: Pain No Action Albuterol Inhaler (Mhu) [Ventolin Hfa Inhaler (Mhu)] 2 puff PO DAILY PRN PRN Reason: Shortness Of Breath Famotidine [Pepcid] 10 mg PO DAILY PRN PRN Reason: acid reflux Ibuprofen [Motrin] 600 mg PO Q6HR PRN #30 tab PRN Reason: Mild Pain Or Fever >= 100.5 Acetaminophen Tab [Tylenol] 325 - 650 mg PO Q4H PRN PRN Reason: Pain Discharge Medication List Albuterol Inhaler (Mhu) [Ventolin Hfa Inhaler (Mhu)] 2 puff PO DAILY PRN 10/16/17 [History] Famotidine [Pepcid] 10 mg PO DAILY PRN 03/22/20 [History] Ibuprofen [Motrin] 600 mg PO Q6HR PRN #30 tab 03/30/20 [Rx] Acetaminophen Tab [Tylenol] 325 - 650 mg PO Q4H PRN 04/10/20 [History] Ibuprofen [Motrin] 600 mg PO Q6HR PRN #30 tab 04/11/20 [Rx] Follow up Appointment(s)/Referral(s): Go Ayon DO [Doctor of Osteopathic Medicine] - 1 Week Activity/Diet/Wound Care/Special Instructions: No heavy lifting, limit stairs and driving, and pelvic rest. If any high temperatures, heavy bleeding, or severe pain call my office or report to the emergency room Discharge Disposition: HOME SELF-CARE
[2020-04-11 10:08] VITALS: TEMP 97.4
[2020-04-11] MEDS ORDERED: ACETAMINOPHEN TAB 500 MG TAB PO ONE ×3 (10:30→11:02)
[2020-04-11] MEDS ORDERED: ACETAMINOPHEN TAB 500 MG TAB ONE (11:00)
[2020-04-11 11:19] VITALS: BP 109/75; PULSE 78
== END 2020-04-11 11:56 | disposition home or self-care (01) ==
LOC: OR 08:03
PROVIDERS: ATTEND Obstetrics & Gynecology
DX: O72.2 Delayed and secondary postpartum hemorrhage (principal); J45.909 Unspecified asthma, uncomplicated; K21.9 Gastro-esophageal reflux disease without esophagitis; Z87.891 Personal history of nicotine dependence; Z98.890 Other specified postprocedural states; Z91.018 Allergy to other foods; Z91.040 Latex allergy status; Z82.49 Family history of ischemic heart disease and other diseases of the circulatory system; Z83.3 Family history of diabetes mellitus
CPT/HCPCS: 88305; 59160; J2250; J1100; J2405; J3010; J1885; J2704

== ENCOUNTER → 2020-07-18 | Outpatient (CLI) | payer OTHER ==
--- NOTE | 2020-07-18 15:28 | XR ---
EXAMINATION TYPE: XR ankle complete LT DATE OF EXAM: 07/18/2020 COMPARISON: NONE HISTORY: Pain TECHNIQUE: 3 views of the left ankle are submitted for evaluation. FINDINGS: There is no evidence for fracture or dislocation. Ankle mortise is intact. Soft tissues are within normal limits. IMPRESSION: 1. No evidence for acute fracture.
== END | disposition home or self-care (01) ==
LOC: RADPROMAIN 15:06
PROVIDERS: ATTEND Nurse Practitioner Family
DX: M25.572 Pain in left ankle and joints of left foot (principal)

== ENCOUNTER → 2020-12-05 | Outpatient (CLI) | payer OTHER ==
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
[2020-12-05 18:16] LABS: Basophils # (A) 0.06 X 10*3/uL (0.00-0.10); Basophils % (A) 0.8 %; Eosinophils # (A) 0.34 X 10*3/uL (0.04-0.35); Eosinophils % (A) 4.4 %; HCT 42.7 % (37.2-46.3); HGB 13.8 g/dL (12.0-15.0); Lymphocytes # (A) 1.93 X 10*3/uL (0.90-5.00); Lymphocytes % (A) 24.8 %; MCH 27.8 pg (27.0-32.0); MCHC 32.3 g/dL (32.0-37.0); MCV 85.9 fL (80.0-97.0); Mean Platelet Volume 10.6 fL (9.5-12.2); Monocytes # (A) 0.62 X 10*3/uL (0.20-1.00); Neutrophils # (A) 4.81 X 10*3/uL (1.80-7.70); Neutrophils % (A) 61.6 %; Platelet Count 324 X 10*3/uL (140-440); RBC 4.97 X 10*6/uL (4.10-5.20); RDW 13.2 % (11.5-14.5); WBC 7.79 X 10*3/uL (4.50-10.00)
[2020-12-06 01:30] LABS: African American GFR (CKD) 165.5 (60.0-200.0); Albumin/Globulin Ratio 2.19 (1.60-3.17); Anion Gap 13.1 mmol/L (4.00-12.00); BUN/Creat Ratio 22.51 Ratio (12.00-20.00); Blood Urea Nitrogen 9.8 mg/dL (9.0-27.0); Calcium 10.3 mg/dL (8.7-10.3); Carbon Dioxide 21.2 mmol/L (21.6-31.8); Globulin 2.3 g/dL (1.6-3.3); Non-African American GFR(CKD) 142.8 (60.0-200.0); Potassium 4.1 mmol/L (3.5-5.5); T4, Free (Free Thyroxine) 1.53 ng/dL (0.800-1.800); Total Bilirubin 0.5 mg/dL (0.30-1.20); Total Protein 7.2 g/dL (6.2-8.2)
== END | disposition home or self-care (01) ==
LOC: LABWHC1 11:06
PROVIDERS: ATTEND Nurse Practitioner Family
DX: U07.1 COVID-19 (principal)
CPT/HCPCS: 36415; 71046; 80053; 84439; 84443; 85025; 85379

== ENCOUNTER → 2021-02-11 | Outpatient (CLI) | payer OTHER ==
--- NOTE | 2021-02-11 12:13 | XR ---
EXAMINATION TYPE: XR lumbar spine 2 or 3V DATE OF EXAM: 02/11/2021 CLINICAL HISTORY: Low back pain extending down right leg. TECHNIQUE: Frontal and lateral images of the lumbar spine are obtained. COMPARISON: Lumbar spine x-ray April 25, 2014 FINDINGS: There are 5 lumbar type vertebral bodies redemonstrated. The lumbar spine shows stable an d satisfactory alignment without evidence of acute fracture or dislocation. Vertebral body heights an d disk space heights remain within normal limits. The overlying soft tissue appears unremarkable. IMPRESSION: As above. No significant change from prior.
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
== END | disposition home or self-care (01) ==
LOC: RADXRMAIN 10:38
PROVIDERS: ATTEND Nurse Practitioner Family
DX: M54.2 Cervicalgia (principal); M54.16 Radiculopathy, lumbar region
CPT/HCPCS: 72050; 72100